=== PATIENT | male | born 2000 | race Two or more races ===

== ENCOUNTER 2024-05-24 10:34 | Inpatient (IN) | payer MEDICAID ==
[~2024-05-24] VITALS: Ht 180.3 cm; Wt 132.0 kg
[2024-05-24 11:26] LABS: APPEARANCE,URINE HAZY (CLEAR); BILIRUBIN,URINE NEGATIVE (NEGATIVE); COLOR,URINE YELLOW (YELLOW); GLUCOSE, URINE (UA) NEGATIVE (NEGATIVE); LEUKOCYTE ESTERASE ,URINE SMALL (NEGATIVE); NITRATE,URINE NEGATIVE (NEGATIVE); OCCULT BLOOD,URINE SMALL (NEGATIVE); PH,URINE 5.5 (5.0-8.0); PH,URINE DRUG SCREEN 5.5 (5.0-8.0); PROTEIN,URINE 100-200,SEE CONFIRM mg/dL (NEGATIVE); SPECIFIC GRAVITIY, URINE 1.028 (1.003-1.030); UROBILINOGEN,URINE <=1.0 mg/dL (<=1.0)
[2024-05-24 11:29] LABS: BASOPHILS % (AUTO) 0.5 % (0.0-2.0); EOSINOPHILS % (AUTO) 0 % (1.0-6.0); HEMATOCRIT 44.5 % (41-53); HEMOGLOBIN 15.3 g/dL (13.5-17.5); LYMPHOCYTES # (AUTO) 2.5 K/uL (1.0-4.8); LYMPHOCYTES % (AUTO) 19.2 % (22.0-44.0); MEAN CORPUSCULAR HEMOGLOBIN 30.2 pg (26.0-34.0); MEAN CORPUSCULAR HGB CONC 34.3 G/dL (31.0-37.0); MEAN CORPUSCULAR VOLUME 88 fL (80-100); MONOCYTES # (AUTO) 0.8 K/uL (0.1-1.0); MONOCYTES % (AUTO) 6.1 % (2.0-9.0); NEUTROPHILS # (AUTO) 9.7 K/uL (1.8-7.7); NEUTROPHILS % (AUTO) 74.2 % (40.0-70.0); PLATELET COUNT (AUTO) 293 K/uL (150-450); RED BLOOD CELL COUNT(AUTO) 5.05 MIL/uL (4.50-5.90); RED CELL DISTRIBUTION WIDTH 12.3 % (11.5-14.5); WHITE BLOOD COUNT (AUTO) 13.1 K/uL (4.5-11.0)
[2024-05-24 11:37] LABS: ALCOHOL, URINE DRUG SCREEN POSITIVE (NEGATIVE); AMPHET/METH SCREEN,URINE NEGATIVE (NEGATIVE); BARBITURATE SCREEN, URINE NEGATIVE (NEGATIVE); BENZODIAZEPINES SCREEN,URINE NEGATIVE (NEGATIVE); CANNABINOID SCREEN,URINE NEGATIVE (NEGATIVE); COCAINE SCREEN,URINE NEGATIVE (NEGATIVE); METHADONE SCREEN, URINE NEGATIVE (NEGATIVE); OPIATE SCREEN,URINE NEGATIVE (NEGATIVE); PHENCYCLIDINE SCREEN,URINE NEGATIVE (NEGATIVE)
[2024-05-24 11:38] LABS: ANION GAP 12 mmol/L (8-16); CARBON DIOXIDE 24 mmol/L (22-29); CHLORIDE 104 mmol/L (98-107); CREATININE 0.82 mg/dL (0.60-1.30); GLOMERULAR FILTR. RATE CALC > 60 mL/min (>60); GLUCOSE,RANDOM 92 mg/dL (70-110); POTASSIUM 3.8 mmol/L (3.5-5.1); SODIUM SERUM 140 mmol/L (136-145); UREA NITROGEN, BLOOD 16 mg/dL (7-18)
[2024-05-24 11:50] LABS: BACTERIA,URINE Few /HPF (None Seen); RBC,URINE 0-2 /HPF (0-2); SQUAMOUS EPITHELIAL CELL,UR Few /LPF (None Seen); SULFOSALICYLIC ACID,URINE 1+ (Negative)
[2024-05-24 11:54] LABS: ALCOHOL, BLOOD (SERUM) 114 mg/dL (0-10)
[2024-05-24 12:04] LABS: COVID AG,FIA SOURCE NASAL SWAB
[2024-05-24 12:26] LABS: SARS-COV2 (COVID) ANTIGEN,FIA Negative (Negative)
[2024-05-24] MEDS ORDERED: TUBERCULIN, PURIFIED PROTEIN DERIVATIVE 5 TU/0.1 ML SYRINGE ID ONE (14:30)
[2024-05-24] MEDS ORDERED: MAGNESIUM HYDROXIDE SUSPENSION 30 ML UDCUP PO PRN (14:30)
[2024-05-24] MEDS ORDERED: GuaiFENesin/D-METHORPHAN [SUGAR-FREE] 200-20MG/10 ML SYRUP UDCUP PO PRN (14:30)
[2024-05-24] MEDS ORDERED: HydrOXYzine PAMOATE 50 MG CAPSULE PO PRN (14:30)
[2024-05-24] MEDS ORDERED: QUEtiapine FUMARATE 100 MG TABLET PO PRN (14:30)
[2024-05-24] MEDS ORDERED: LOPERAMIDE HCL 2 MG CAPSULE PO PRN (14:30)
[2024-05-24] MEDS ORDERED: MAG HYDROX/ALUMINUM HYD/SIMETH ES 30 ML SUSPENSION UDCUP PO PRN (14:30)
[2024-05-24] MEDS ORDERED: ACETAMINOPHEN 325 MG TABLET PO PRN (14:30)
[2024-05-24] MEDS ORDERED: ZOLPIDEM TARTRATE 10 MG TABLET PO PRN (14:30)
[2024-05-24] MEDS ORDERED: PROMETHAZINE HCL 25 MG TABLET PO PRN (14:30)
[2024-05-24] MEDS ORDERED: LORazepam 2 MG TABLET PO PRN (14:30)
[2024-05-24] MEDS: CYANOCOBALAMIN 1,000 MCG/ML VIAL IM ONE (14:32)
[2024-05-24 19:00] VITALS: O2SAT 96
[2024-05-24 22:32] VITALS: BP 143/87; PULSE 96; RESP 16; TEMP 98.6; O2SAT 97
[2024-05-24] MEDS: MELATONIN 5 MG TABLET PO SCH (22:58)
[2024-05-24] MEDS: THIAMINE 100 MG TABLET PO SCH (23:00)
[2024-05-24 23:04] VITALS: RESP 16
[2024-05-25] VITALS (9 sets, daily range): BP systolic 111–124; BP diastolic 52–78; PULSE 75–97; RESP 16–18; TEMP 97.2–98.6; O2SAT 96–99
[2024-05-25] MEDS ORDERED: LORazepam 2 MG TABLET PO PRN (07:00)
[2024-05-25 08:54] LABS: BASOPHILS % (AUTO) 0.4 % (0.0-2.0); EOSINOPHILS % (AUTO) 2.2 % (1.0-6.0); HEMATOCRIT 41.8 % (41-53); HEMOGLOBIN 14.5 g/dL (13.5-17.5); LYMPHOCYTES # (AUTO) 2.2 K/uL (1.0-4.8); LYMPHOCYTES % (AUTO) 30.8 % (22.0-44.0); MEAN CORPUSCULAR HEMOGLOBIN 30.2 pg (26.0-34.0); MEAN CORPUSCULAR HGB CONC 34.6 G/dL (31.0-37.0); MEAN CORPUSCULAR VOLUME 87 fL (80-100); MONOCYTES # (AUTO) 0.4 K/uL (0.1-1.0); MONOCYTES % (AUTO) 6.1 % (2.0-9.0); NEUTROPHILS # (AUTO) 4.4 K/uL (1.8-7.7); NEUTROPHILS % (AUTO) 60.5 % (40.0-70.0); PLATELET COUNT (AUTO) 237 K/uL (150-450); RED BLOOD CELL COUNT(AUTO) 4.79 MIL/uL (4.50-5.90); RED CELL DISTRIBUTION WIDTH 12.5 % (11.5-14.5); WHITE BLOOD COUNT (AUTO) 7.2 K/uL (4.5-11.0)
[2024-05-25] MEDS: FOLIC ACID 1 MG TABLET PO SCH (09:00)
[2024-05-25] MEDS: MULTIVITAMINS WITH MINERALS, THERAPEUTIC TABLET PO SCH (09:00)
[2024-05-25] MEDS: LORazepam 2 MG TABLET PO SCH (09:00)
[2024-05-25] MEDS: NALTREXONE HCL 50 MG TABLET PO SCH (09:00)
[2024-05-25] MEDS: FLUoxetine HCL 20 MG CAPSULE PO SCH (09:00)
[2024-05-25 09:13] LABS: HEMOGLOBIN A1C 5.2 % (3.8-5.6)
[2024-05-25 09:22] LABS: ALANINE AMINOTRANSFERASE 57 U/L (12-78); ALBUMIN 3.5 g/dL (3.4-5.0); ALKALINE PHOSPHATASE 66 U/L (46-116); ANION GAP 9 mmol/L (8-16); ASPARTATE AMINOTRANSFERASE 52 U/L (15-37); BILIRUBIN,TOTAL 1.2 mg/dL (0.1-1.0); CALCIUM, TOTAL 8.8 mg/dL (8.8-10.5); CARBON DIOXIDE 27 mmol/L (22-29); CHLORIDE 104 mmol/L (98-107); CHOL/HDL RATIO 5.1 (4.2-7.3); CHOLESTEROL 173 mg/dL (131-200); CREATININE 0.71 mg/dL (0.60-1.30); FREE T4 (FREE THYROXINE) 1.04 ng/dL (0.76-1.46); GLOMERULAR FILTR. RATE CALC > 60 mL/min (>60); GLUCOSE,RANDOM 98 mg/dL (70-110); HDL CHOLESTEROL 34 mg/dL (40-60); LDL CHOL (CALC.) 83 mg/dL (0-130); POTASSIUM 3.4 mmol/L (3.5-5.1); SODIUM SERUM 140 mmol/L (136-145); THYROID STIMULATING HORMONE 2.64 uIU/mL (0.36-3.74); TOTAL PROTEIN, SERUM 7.5 g/dL (6.4-8.2); TRIGLYCERIDES 279 mg/dL (15-150); UREA NITROGEN, BLOOD 15 mg/dL (7-18)
[2024-05-26 09:24] VITALS: BP 115/73; PULSE 61; RESP 17; TEMP 97.7; O2SAT 97
[2024-05-26] MEDS ORDERED: NALT50TA33 PO (16:32)
[2024-05-26 20:13] VITALS: BP 141/84; PULSE 84; RESP 17; TEMP 98.8; O2SAT 96
[2024-05-27] MEDS ORDERED: LORazepam 1 MG TABLET PO PRN (07:00)
[2024-05-27 08:00] VITALS: BP 126/60; PULSE 54; RESP 18; TEMP 98; O2SAT 96
[2024-05-27] MEDS: LORazepam 1 MG TABLET PO SCH (08:39)
[2024-05-27] MEDS ORDERED: LOPERAMIDE HCL 2 MG CAPSULE PO PRN (14:30)
[2024-05-28] MEDS ORDERED: LORazepam 1 MG TABLET PO PRN (07:00)
== END 2024-05-27 11:00 | disposition left against medical advice (07) | DRG 751 ==
LOC: EMS 10:34 → B2S 20:54
PROVIDERS: ADMIT Psychiatry & Neurology Psychiatry; ATTEND Psychiatry & Neurology Psychiatry
PROC: GZHZZZZ Group Psychotherapy (ICD-10-PCS; principal; 2024-05-25)
PROC: GZ58ZZZ Individual Psychotherapy, Cognitive-Behavioral (ICD-10-PCS; 2024-05-25)
DX: F33.9 Major depressive disorder, recurrent, unspecified (principal); R45.851 Suicidal ideations; F17.200 Nicotine dependence, unspecified, uncomplicated; F41.9 Anxiety disorder, unspecified; Z20.822 Contact with and (suspected) exposure to COVID-19; F10.20 Alcohol dependence, uncomplicated; Z91.51 Personal history of suicidal behavior; Z53.29 Procedure and treatment not carried out because of patient's decision for other reasons
CPT/HCPCS: 80048; 80053; 80061; 80307; 81001; 81002; 83036; 84439; 84443; 85025; 86592; 96372; 99285; G0480; J3420

== ENCOUNTER 2024-09-02 23:55 | Emergency (ER) | payer MEDICAID, OTHER ==
[~2024-09-02] VITALS: Ht 182.9 cm; Wt 136.4 kg
[~2024-09-02 23:55] MED LIST: NALT50TA33 PO
[2024-09-02 23:58] VITALS: BP 154/67; PULSE 108; RESP 18; TEMP 97.8; O2SAT 100
[2024-09-03] MEDS: ALBUTEROL SULFATE HFA 90 MCG/PUFF 8 GM INHALER IH ONE (00:24)
== END 2024-09-03 | disposition still patient (30) ==
LOC: EMS 09-03 00:59
DX: J45.909 Unspecified asthma, uncomplicated (principal); F41.9 Anxiety disorder, unspecified; F32.A Depression, unspecified; F12.90 Cannabis use, unspecified, uncomplicated; F10.90 Alcohol use, unspecified, uncomplicated; Z79.899 Other long term (current) drug therapy; Y90.9 Presence of alcohol in blood, level not specified
CPT/HCPCS: 94640; 99283; J3535